=== PATIENT | female | born 1945 | race Caucasian/White ===

== ENCOUNTER 2016-09-14 12:58 | Emergency (ER) | payer OTHER ==
[~2016-09-14] VITALS: Ht 157.5 cm; Wt 73.9 kg
--- NOTE | 2016-09-14 13:08 | NUR ---
PT BIB [facility] FROM HOME C/O SOB X3 DAYS, WORSE TODAY. NOTED WITH WHEEZES AND HYPOXIC ON ROOM AIR. PLACED ON SIMPLE MASK AT 6LPM. REPORTS MILD PAIN IN ABDOMEN, WHICH PT ATTRIBUTES TO "BLEEDING ULCER". RESPIRATIONS MILDLY LABORED AND TACHYPNEIC. SKIN WARM NONDIAPHORETIC. A/OX4. IN ER BED 09 ON MONITOR. RT PAGED FOR BREATHING TX.
[2016-09-14] MEDS ORDERED: ALBUTEROL FS 2.5 MG/3 ML VIAL.NEB ONE (13:11)
[2016-09-14] MEDS ORDERED: IPRATROPIUM NEB FS 0.5 MG/2.5 ML AMPUL.NEB ONE (13:11)
[2016-09-14 13:17] LABS: BASOPHILS # (AUTO) 0.1 /CMM (0.0-0.2); BASOPHILS % (AUTO) 0.8 % (0.0-2.0); EOSINOPHILS % (AUTO) 0.2 % (0.0-6.0); HEMATOCRIT 54 % (33-45); HEMOGLOBIN 17.6 g/dL (11.5-14.8); LYMPHOCYTES # (AUTO) 0.9 /CMM (0.8-4.8); LYMPHOCYTES % (AUTO) 10.4 % (20.0-44.0); MEAN CORPUSCULAR HEMOGLOBIN 31 PG (26.0-33.0); MEAN CORPUSCULAR HGB CONC 33 g/dl (31.0-36.0); MEAN CORPUSCULAR VOLUME 96 fL (82-100); MONOCYTES # (AUTO) 0.1 /CMM (0.1-1.30); MONOCYTES % (AUTO) 1.6 % (2.0-12.0); NEUTROPHILS # (AUTO) 7.3 /CMM (1.8-8.9); PLATELET COUNT (AUTO) 426 /CMM (150-450); RED BLOOD CELL COUNT(AUTO) 5.68 MIL/uL (4.0-5.2); WHITE BLOOD COUNT (AUTO) 8.4 K/uL (4.3-11.0)
[2016-09-14 13:29] LABS: CALCIUM, SERUM 9.5 mg/dL (8.5-10.1); CREATININE 0.4 mg/dL (0.6-1.3); POTASSIUM 3.6 mmol/L (3.5-5.1)
[2016-09-14] MEDS ORDERED: IPRATROPIUM NEB FS 0.5 MG/2.5 ML AMPUL.NEB NEB ONE (13:30)
[2016-09-14] MEDS ORDERED: ALBUTEROL FS 2.5 MG/3 ML VIAL.NEB NEB ONE (13:30)
[2016-09-14 13:33] LABS: INR 1.08 (0.87-1.13); PROTHROMBIN TIME 11.2 SECS (9.5-12.7)
[2016-09-14 13:36] LABS: TROPONIN I 0.021 ng/mL (0.00-0.056)
[2016-09-14 13:41] LABS: ALBUMIN 3.1 g/dL (3.4-5.0); BILIRUBIN,DIRECT 0.4 mg/dL (0.0-0.2); BILIRUBIN,TOTAL 0.9 mg/dL (0.2-1.0); TOTAL PROTEIN, SERUM 7.9 g/dL (6.4-8.2)
--- NOTE | 2016-09-14 14:20 | NUR ---
spoke to [facility], sammy cortés will call back
--- NOTE | 2016-09-14 14:25 | NUR ---
CALLED [facility] @[phone]
[2016-09-14] MEDS ORDERED: NITROGLYCERIN PACKET 1 GM PACKET TD ONE (14:30)
[2016-09-14] MEDS ORDERED: FUROSEMIDE 40 MG/4 ML VIAL IV ONE (14:30)
[2016-09-14] MEDS ORDERED: ASPIRIN 81 MG TAB.CHEW PO ONE (14:30)
[2016-09-14] MEDS ORDERED: ASPIRIN 325 MG TABLET PO ONE (14:30)
[2016-09-14] MEDS ORDERED: ASPIRIN EC 81 MG TABLET.DR PO ONE (14:33)
[2016-09-14] MEDS ORDERED: FUROSEMIDE 40 MG/4 ML VIAL ONE (14:33)
[2016-09-14] MEDS ORDERED: NITROGLYCERIN PACKET 1 GM PACKET ONE (14:33)
--- NOTE | 2016-09-14 14:56 | NUR ---
CALL FROM ANGELLA ASKEW, [facility] WITH [place] INFO: GOING TO [facility], REPORT TO [phone], ACCEPTED BY DR PEACOCK, SENDING [facility], ETA [phone]
--- NOTE | 2016-09-14 15:07 | NUR ---
REPORT GIVEN TO IV
--- NOTE | 2016-09-14 16:00 | NUR ---
PATIENT PULLED OUT CATHETER, NOTIFIED, NO ACTIVE BLEEDING, WILL CONTINUE W/ TRANSFER
[2016-09-14 16:01] VITALS: BP 126/81
== END 2016-09-14 16:09 | disposition short-term general hospital (02) ==
LOC: ER 13:00
DX: I50.20 Unspecified systolic (congestive) heart failure (principal); I25.2 Old myocardial infarction; Z86.73 Personal history of transient ischemic attack (TIA), and cerebral infarction without residual deficits
CPT/HCPCS: 36415; 71010-TC; 80048-TC; 80076-TC; 83880; 84484-TC; 85025-TC; 85730-TC; A4606; J1940; Z7610